=== PATIENT | female | born 1990 | race Hispanic/Latino ===

== ENCOUNTER 2024-06-21 22:07 | Emergency (ER) | payer SELFPAY ==
[2024-06-21] MEDS ORDERED: SINGULAIR10 MG PO (22:53)
[2024-06-21] MEDS ORDERED: TYLENOL500 MG PO (22:53)
[2024-06-21] MEDS ORDERED: VENTOLIN HFA108 MCG (22:53)
[2024-06-21 23:40] VITALS: BP 125/81
[2024-06-22] VITALS: BP 100/64
[2024-06-22 00:30] VITALS: BP 107/69
[2024-06-22 00:31] LABS: URINE BILIRUBIN - DIPSTICK Negative (NEGATIVE); URINE BLOOD DIPSTICK Moderate (NEGATIVE); URINE GLUCOSE - DIPSTICK Negative (NEGATIVE); URINE KETONE Negative (NEGATIVE); URINE LEUK ESTERASE Negative (NEGATIVE); URINE NITRITE - DIPSTICK Negative (Negative); URINE PH 6.5 (4.5-8.0); URINE PROTEIN - DIPSTICK Negative (NEG-TRACE); URINE UROBILINOGEN - DIPSTICK 0.2 E.U./dL (0.2)
[2024-06-22 00:31] LABS: BASO% 0.3 % (0-3); EOS% 1.8 % (0-8); HEMATOCRIT 37.3 % (37.0-47.0); HEMOGLOBIN 12.1 g/dl (12.0-16.0); IMMATURE GRANULOCYTES 0.1 % (0.0-5.0); LYMPH% 29.9 % (15-41); MEAN CELL VOLUME 94.2 fL CALC (80.0-100.0); MEAN CORPUSCULAR HGB 30.6 pG CALC (26.0-32.0); MEAN CORPUSCULAR HGB CONC 32.4 g/dL CAL (32.0-36.0); MONO% 11.7 % (2-13); NEUT# 5.17 thou/uL (2.00-7.15); NEUT% 56.2 % (42-76); RED BLOOD COUNT 3.96 mill/uL (4.20-5.60); RED CELL DISTRI WIDTH 13.2 % (11.5-15.5)
[2024-06-22 00:32] LABS: URINE COLOR Yellow
[2024-06-22] MEDS ORDERED: ONDANSETRON HCl 4 MG/2 ML SDV IV ONE (00:40)
[2024-06-22] MEDS ORDERED: ISOVUE-300 (Iopamidol) 100 ML SDV IV ONE (00:40)
[2024-06-22] MEDS ORDERED: MORPHINE SULFATE 4 MG/ML VIAL IV ONE (00:40)
[2024-06-22 00:41] LABS: URINE RBC 0-2 RBC/hpf (0-5); URINE SQUAMOUS EPITHELIAL CELL MODERATE EPI/hpf (0-FEW)
[2024-06-22 00:41] LABS: ALBUMIN 4.1 g/dL (3.2-5.0); CREATININE 0.9 mg/dL (0.5-1.0); POTASSIUM 3.6 mmol/l (3.5-5.1)
[2024-06-22 01:00] VITALS: BP 119/83
[2024-06-22] MEDS ORDERED: KETOROLAC TROMETHAMINE 15 MG/ML SDV IV ONE (01:25)
[2024-06-22 01:30] VITALS: BP 97/60
[2024-06-22 02:00] VITALS: BP 96/63
[2024-06-22] MEDS ORDERED: TAMSULOSIN0.4 MG PO ×2 (03:38→04:06)
[2024-06-22] MEDS ORDERED: CELEBREX200 MG PO ×2 (03:38→04:06)
[2024-06-22 04:12] VITALS: BP 98/64
== END 2024-06-22 04:12 | disposition home or self-care (01) | DRG 694 ==
LOC: ED 22:07
PROVIDERS: Emergency Medicine
DX: N13.2 Hydronephrosis with renal and ureteral calculous obstruction (principal)
CPT/HCPCS: Q9967